=== PATIENT | male | born 1955 | race African-American/Black ===

== ENCOUNTER 2018-10-18 11:27 | Inpatient (IN) | payer MEDICARE, OTHER ==
[~2018-10-18] VITALS: Ht 180.3 cm; Wt 113.4 kg
[~2018-10-18 11:27] MED LIST: ASA5EC PO; DIGO125T82 PO; DILT240C3 PO; FURO-151 PO; HYDR-523 PO; IBUP-2028 PO; LEVE1000 PO; LEVO50TA8 PO
[2018-10-18] MEDS ORDERED: NITROGLYCERIN 0.4MG TABLET SL SL PRN (12:00)
[2018-10-18] MEDS ORDERED: DILTIAZEM HCL 5MG/ML 5ML VIAL IV ONE (12:00)
[2018-10-18 12:48] LABS: BASOPHILS % 0.9 % (0.0-2.0); EOSINOPHILS % 1.7 % (0.0-5.0); HEMATOCRIT. 42.2 % (42.0-52.0); HEMOGLOBIN. 13.7 g/dL (14.0-18.0); LYMPHOCYTES % 15.2 % (20.0-50.0); MEAN CORPUSCULAR HEMOGLOBIN 27.4 pg (28.0-32.0); MEAN CORPUSCULAR VOLUME 84.3 fL (80.0-94.0); MEAN PLATELET VOLUME 8.4 fl (7.4-10.4); MONOCYTES % 9.4 % (2.0-8.0); NEUTROPHILS % 72.8 % (40.0-76.0); PLATELET 250 x1000/uL (130-400)
[2018-10-18 12:56] LABS: INR 1.2; PROTHROMBIN TIME 12.2 sec (9.6-11.0)
[2018-10-18 13:17] LABS: CHLORIDE 101 mEq/L (98-107)
[2018-10-18] MEDS ORDERED: ONDANSETRON HCL 4MG/2ML INJ IV PRN (15:15)
[2018-10-18] MEDS ORDERED: DOCUSATE SODIUM 100MG CAPSULE PO PRN (15:15)
[2018-10-18] MEDS ORDERED: DIPHENHYDRAMINE 50MG/ML VIAL IV PRN (15:15)
[2018-10-18] MEDS ORDERED: IPRATROPIUM/ALBUTEROL 0.5-3(2.5)MG/3ML NEB INH PRN (15:15)
[2018-10-18] MEDS ORDERED: GUAIFENESIN 200MG/10ML SUGAR FREE UDC PO PRN (15:15)
[2018-10-18] MEDS ORDERED: ACETAMINOPHEN 650MG SUPP PR PRN (15:15)
[2018-10-18] MEDS ORDERED: MAGNESIUM/ALUMINUM HYDROXIDE/SIMETHICONE 30ML UDC PO PRN (15:15)
[2018-10-18] MEDS ORDERED: LORAZEPAM 0.5MG TABLET PO PRN (15:15)
[2018-10-18] MEDS ORDERED: CLONIDINE 0.1MG TABLET PO PRN (15:15)
[2018-10-18] MEDS ORDERED: NA PHOS,M-B/NA PHOS,DI-BA ENEMA 118ML PR PRN (15:15)
[2018-10-18] MEDS ORDERED: HYDROCODONE/ACETAMINOPHEN 5/325MG TABLET PO PRN (15:15)
[2018-10-18] MEDS ORDERED: DILTIAZEM HCL 125 MG in DEXT 5% WATER 100 ML IV PRN ×2 (15:15→17:00)
[2018-10-18] MEDS ORDERED: ACETAMINOPHEN 325MG TABLET PO PRN (15:15)
[2018-10-18 20:55] LABS: CLARITY URINE CLEAR (CLEAR); COLOR URINE YELLOW (YELLOW); KETONES URINE NEGATIVE (NEGATIVE); LEUKOCYTE ESTERASE URINE NEGATIVE (NEGATIVE); NITRITE URINE NEGATIVE (NEGATIVE); OCCULT BLOOD URINE NEGATIVE (NEGATIVE); PH URINE 6.5 (4.5-8.0); PROTEIN URINE NEGATIVE (NEGATIVE); SPECIFIC GRAVITY URINE 1.009 (1.005-1.030)
[2018-10-18] MEDS ORDERED: POTASSIUM CHLORIDE INJ 40 MEQ in DEXT 5% WATER 250 ML IV NR (21:00)
[2018-10-18 21:05] LABS: *AMPHETAMINES SCREEN URINE NEGATIVE (NEGATIVE); *BARBITURATES SCREEN URINE NEGATIVE (NEGATIVE)
[2018-10-18 21:06] LABS: *BENZODIAZEPINES SCREEN URINE NEGATIVE (NEGATIVE); *COCAINE SCREEN URINE NEGATIVE (NEGATIVE); CANNABINOID URINE SCREEN NEGATIVE (NEGATIVE); METHADONE URINE SCREEN NEGATIVE (NEGATIVE); OPIATES URINE SCREEN NEGATIVE (NEGATIVE); PHENCYCLIDINE URINE SCREEN NEGATIVE (NEGATIVE)
[2018-10-19] VITALS (18 sets, daily range): BP systolic 84–116; BP diastolic 47–92
[2018-10-19] MEDS ORDERED: ENOXAPARIN 120MG/0.8ML SYR SUBCUT SCH
[2018-10-19 07:30] LABS: EOSINOPHILS % 2.2 % (0.0-5.0); HEMATOCRIT. 43.5 % (42.0-52.0); HEMOGLOBIN. 14.1 g/dL (14.0-18.0); LYMPHOCYTES % 16.1 % (20.0-50.0); MEAN CORPUSCULAR HEMOGLOBIN 27.3 pg (28.0-32.0); MEAN CORPUSCULAR VOLUME 84.4 fL (80.0-94.0); MEAN PLATELET VOLUME 8.7 fl (7.4-10.4); MONOCYTES % 10.3 % (2.0-8.0); NEUTROPHILS % 70.4 % (40.0-76.0); PLATELET 242 x1000/uL (130-400); RED BLOOD CELL COUNT 5.15 mill/uL (4.7-6.1); RED CELL DISTRIBUTION WIDTH 16.8 % (11.6-14.6)
[2018-10-19] MEDS: ASPIRIN 81MG EC TABLET PO SCH (07:53)
[2018-10-19 08:34] LABS: CHLORIDE 98 mEq/L (98-107)
[2018-10-19 08:40] LABS: CREATINE KINASE MB FRACTION < 1.0 ng/mL (0.5-3.6)
[2018-10-19 08:45] LABS: LDL CHOLESTEROL 111 mg/dL (5-100)
[2018-10-19 08:46] LABS: CREATINE KINASE 128 IU/L (39-308); T4 FREE 1.15 ng/dL (0.76-1.46)
[2018-10-19 08:48] LABS: HDL CHOLESTEROL 46 mg/dL (40-59)
[2018-10-19] MEDS ORDERED: POTASSIUM CHLORIDE 20MEQ TABLET SR PO NR (11:15)
[2018-10-19] MEDS: ENOXAPARIN 100MG/ML SYR SUBCUT SCH (11:57)
[2018-10-19] MEDS: DILTIAZEM HCL 60MG TABLET PO SCH ×2 (11:58→17:26)
[2018-10-19] MEDS: LEVETIRACETAM 500MG TABLET PO SCH (17:26)
[2018-10-19] MEDS: AMIODARONE HCL 200 MG TABLET PO SCH (19:57)
[2018-10-19] MEDS ORDERED: DIGOXIN 500MCG/2ML AMP IV NR (23:13)
[2018-10-20] VITALS (36 sets, daily range): BP systolic 73–118; BP diastolic 48–82
[2018-10-20] MEDS: ENOXAPARIN 100MG/ML SYR SUBCUT SCH (00:26)
[2018-10-20] MEDS: AMIODARONE HCL 200 MG TABLET PO SCH ×3 (03:45→19:34)
[2018-10-20] MEDS: DILTIAZEM HCL 60MG TABLET PO SCH ×2 (06:00)
[2018-10-20] MEDS: LEVOTHYROXINE SODIUM 50MCG TABLET PO SCH (06:12)
[2018-10-20 06:25] LABS: BASOPHILS % 1.3 % (0.0-2.0); EOSINOPHILS % 1.7 % (0.0-5.0); HEMATOCRIT. 43.5 % (42.0-52.0); HEMOGLOBIN. 13.9 g/dL (14.0-18.0); MEAN CORPUSCULAR HEMOGLOBIN 27.1 pg (28.0-32.0); MEAN CORPUSCULAR VOLUME 84.6 fL (80.0-94.0); MEAN PLATELET VOLUME 9.1 fl (7.4-10.4); MONOCYTES % 10.7 % (2.0-8.0); NEUTROPHILS % 69.3 % (40.0-76.0); PLATELET 267 x1000/uL (130-400); RED BLOOD CELL COUNT 5.14 mill/uL (4.7-6.1); RED CELL DISTRIBUTION WIDTH 16.8 % (11.6-14.6)
[2018-10-20 06:50] LABS: CHLORIDE 101 mEq/L (98-107)
[2018-10-20] MEDS: ASPIRIN 81MG EC TABLET PO SCH (08:56)
[2018-10-20] MEDS: LEVETIRACETAM 500MG TABLET PO SCH ×2 (08:57→17:09)
[2018-10-20] MEDS ORDERED: DIGOXIN 500MCG/2ML AMP IV NR (09:45)
[2018-10-20] MEDS ORDERED: KCL 20MEQ/100ML PREMIX 100 ML IV NR (10:00)
[2018-10-20] MEDS ORDERED: AMIODARONE HCL 150 MG in DEXT 5% WATER 100 ML IV NR (10:00)
[2018-10-20 13:34] LABS: BG BASE EXCESS 6.1 mmol/L (-2.0-2.0); BG CARBOXYHEMOGLOBIN 1.4 % (0.5-1.5); BG DEOXYHEMOGLOBIN 5.7 % (0.0-5.0); BG FRACTION INSPIRED OXYGEN 21; BG HCO3 ACT 30.8 mmol/L (22.0-26.0); BG METHEMOGLOBIN 0.2 % (0.0-1.5); BG OXYGEN SATURATION 94.2 % (92.0-98.5); BG OXYHEMOGLOBIN 92.7 % (94.0-97.0); BG PCO2 44.3 mmHg (35.0-45.0); BG PO2 68.7 mmHg (75.0-100.0); BG SAMPLE SITE RIGHT BRACHIAL; BG TOTAL HEMOGLOBIN 14.7 g/dL (12.0-18.0); BG VENT MODE ROOM AIR
[2018-10-20] MEDS: SODIUM CHLORIDE 0.45% 1,000 ML IV SCH ×2 (14:00→14:21)
[2018-10-20] MEDS ORDERED: SODIUM CHLORIDE 0.9% 1,000 ML IV SCH (15:45)
[2018-10-20] MEDS ORDERED: POTASSIUM CHLORIDE 20MEQ TABLET SR PO NR (16:44)
[2018-10-20] MEDS ORDERED: ENOXAPARIN 100MG/ML SYR SUBCUT NR (16:45)
[2018-10-20] MEDS: ATORVASTATIN CALCIUM 20MG TABLET PO SCH (21:32)
[2018-10-21] VITALS (12 sets, daily range): BP systolic 97–132; BP diastolic 53–78
[2018-10-21] MEDS: AMIODARONE HCL 200 MG TABLET PO SCH ×3 (03:16→18:14)
[2018-10-21] MEDS: LEVOTHYROXINE SODIUM 50MCG TABLET PO SCH (06:50)
[2018-10-21 07:21] LABS: BASOPHILS % 1.3 % (0.0-2.0); EOSINOPHILS % 2.6 % (0.0-5.0); HEMATOCRIT. 42.3 % (42.0-52.0); HEMOGLOBIN. 13.9 g/dL (14.0-18.0); LYMPHOCYTES % 18.7 % (20.0-50.0); MEAN CORPUSCULAR HEMOGLOBIN 27.7 pg (28.0-32.0); MEAN CORPUSCULAR VOLUME 84.5 fL (80.0-94.0); MONOCYTES % 10.5 % (2.0-8.0); NEUTROPHILS % 66.9 % (40.0-76.0); PLATELET 247 x1000/uL (130-400); RED BLOOD CELL COUNT 5.01 mill/uL (4.7-6.1); RED CELL DISTRIBUTION WIDTH 16.6 % (11.6-14.6)
[2018-10-21 07:40] LABS: CHLORIDE 108 mEq/L (98-107)
[2018-10-21] MEDS: ASPIRIN 81MG EC TABLET PO SCH (09:00)
[2018-10-21] MEDS: LEVETIRACETAM 500MG TABLET PO SCH ×2 (09:00→18:14)
[2018-10-21] MEDS ORDERED: NITROGLYCERIN 50MCG/ML 10ML VIAL (CATH LAB) IV ONE (09:29)
[2018-10-21] MEDS ORDERED: NICARDIPINE 100MCG/ML 10ML VIAL (CATH LAB) IV ONE (09:29)
[2018-10-21] MEDS ORDERED: HEPARIN SODIUM 1,000 UNIT/1ML VIAL IV ONE (09:29)
[2018-10-21] MEDS ORDERED: FENTANYL CITRATE/PF 50MCG/ML 2ML VIAL ONE (13:21)
[2018-10-21] MEDS ORDERED: ASPIRIN/SOD BICARB/CITRIC ACID 324MG TAB EFF ONE (13:21)
[2018-10-21] MEDS ORDERED: MIDAZOLAM HCL 2 MG/2 ML VIAL ONE (13:21)
[2018-10-21] MEDS ORDERED: IODIXANOL 320MG/ML 100 ML BOTTLE IV ONE (13:22)
[2018-10-21] MEDS ORDERED: LIDOCAINE HCL 1% 20ML VIAL (Pyxis) INJ ONE (13:22)
[2018-10-21] MEDS ORDERED: SODIUM CHLORIDE 0.45% 1,000 ML IV ONE (14:30)
[2018-10-21] MEDS ORDERED: ACETAMINOPHEN 325MG TABLET PO PRN (14:30)
[2018-10-21] MEDS ORDERED: ATROPINE SULFATE 1MG/10ML SYR IV PRN (14:30)
[2018-10-21] MEDS ORDERED: ONDANSETRON HCL 4MG/2ML INJ IV PRN (14:30)
[2018-10-21] MEDS ORDERED: MORPHINE SULFATE 2 MG/ML CPJ (NOT FOR IM USE) IV PRN (14:30)
[2018-10-21] MEDS: APIXABAN 5 MG TABLET PO SCH (21:05)
[2018-10-21] MEDS: ATORVASTATIN CALCIUM 20MG TABLET PO SCH (21:05)
[2018-10-22] VITALS (8 sets, daily range): BP systolic 94–121; BP diastolic 57–77
[2018-10-22] MEDS: AMIODARONE HCL 200 MG TABLET PO SCH ×2 (03:53→10:45)
[2018-10-22] MEDS: LEVOTHYROXINE SODIUM 50MCG TABLET PO SCH (05:59)
[2018-10-22 06:15] LABS: BASOPHILS % 1.1 % (0.0-2.0); EOSINOPHILS % 2.6 % (0.0-5.0); HEMATOCRIT. 42.4 % (42.0-52.0); HEMOGLOBIN. 13.9 g/dL (14.0-18.0); LYMPHOCYTES % 17.1 % (20.0-50.0); MEAN CORPUSCULAR VOLUME 85.5 fL (80.0-94.0); MEAN PLATELET VOLUME 8.7 fl (7.4-10.4); MONOCYTES % 10.7 % (2.0-8.0); NEUTROPHILS % 68.5 % (40.0-76.0); PLATELET 235 x1000/uL (130-400); RED BLOOD CELL COUNT 4.96 mill/uL (4.7-6.1); RED CELL DISTRIBUTION WIDTH 16.4 % (11.6-14.6)
[2018-10-22 06:21] LABS: CHLORIDE 108 mEq/L (98-107)
[2018-10-22] MEDS: ASPIRIN 81MG EC TABLET PO SCH (08:18)
[2018-10-22] MEDS: LEVETIRACETAM 500MG TABLET PO SCH (08:18)
[2018-10-22] MEDS: APIXABAN 5 MG TABLET PO SCH (08:18)
[2018-10-22 10:11] LABS: *CREATININE RANDOM URINE 71.5 mg/dL (Not Estab.); MICROALBUMIN RANDOM URINE 3.2 ug/mL (Not Estab.)
== END 2018-10-22 13:56 | disposition home or self-care (01) | DRG 286 ==
LOC: ER 12:21 → 3WST 13:53 → EDBEDREQSVC 16:54 → ENRESERV 21:05 → 3WST 10-20 09:58
PROVIDERS: ADMIT Internal Medicine; ATTEND Internal Medicine
PROC: B2111ZZ Fluoroscopy of Multiple Coronary Arteries using Low Osmolar Contrast (ICD-10-PCS; principal; 2018-10-21)
PROC: 4A033BC Measurement of Arterial Pressure, Coronary, Percutaneous Approach (ICD-10-PCS; 2018-10-21)
DX: I48.1 Persistent atrial fibrillation (principal); I50.33 Acute on chronic diastolic (congestive) heart failure; D68.59 Other primary thrombophilia; N17.9 Acute kidney failure, unspecified; J98.11 Atelectasis; I42.9 Cardiomyopathy, unspecified; E87.6 Hypokalemia; G40.909 Epilepsy, unspecified, not intractable, without status epilepticus; G89.29 Other chronic pain; M54.9 Dorsalgia, unspecified; I25.10 Atherosclerotic heart disease of native coronary artery without angina pectoris; J44.9 Chronic obstructive pulmonary disease, unspecified; R73.9 Hyperglycemia, unspecified; I49.9 Cardiac arrhythmia, unspecified; K42.9 Umbilical hernia without obstruction or gangrene; I11.0 Hypertensive heart disease with heart failure; I95.9 Hypotension, unspecified; E03.9 Hypothyroidism, unspecified; E80.6 Other disorders of bilirubin metabolism; Z96.643 Presence of artificial hip joint, bilateral; Z87.891 Personal history of nicotine dependence; Z79.899 Other long term (current) drug therapy; Z79.01 Long term (current) use of anticoagulants; Z98.84 Bariatric surgery status; I25.2 Old myocardial infarction; Z88.8 Allergy status to other drugs, medicaments and biological substances; Z79.82 Long term (current) use of aspirin; Z90.89 Acquired absence of other organs
CPT/HCPCS: 36415; 36600; 71045; 76770; 80048; 80061; 80305; 82043; 82248; 82375; 82550; 82553; 82570; 82805; 83036; 83735; 83880; 83935; 84100; 84300; 84439; 84443; 84484; 85379; 93005; 93306; 93454; 93970; 96374; 99291; C1769; C1887; C1893; J0282; J1160; J1644; J1650; J2250; J3010; J3480; J3490; J7050; J7060; Q9967

== ENCOUNTER 2021-11-28 23:07 | Inpatient (IN) | payer MEDICARE, MEDICAID ==
[~2021-11-28] VITALS: Ht 177.8 cm; Wt 123.8 kg
[~2021-11-28 23:07] MED LIST changes: -ASA5EC PO; +ASPI-867 PO; +DIGO125T PO; -DIGO125T82 PO; -DILT240C3 PO; +DILT240C94 PO
[2021-11-29 00:06] LABS: BASOPHILS % 0.9 % (0.0-2.0); EOSINOPHILS % 4.5 % (0.0-5.0); HEMATOCRIT. 37.4 % (42.0-52.0); HEMOGLOBIN. 12.3 g/dL (14.0-18.0); MEAN CORPUSCULAR HEMOGLOBIN 28.9 pg (28.0-32.0); MEAN CORPUSCULAR VOLUME 87.6 fL (80.0-94.0); MEAN PLATELET VOLUME 8.8 fl (7.4-10.4); MONOCYTES % 8.1 % (2.0-8.0); NEUTROPHILS % 61.5 % (40.0-76.0); PLATELET 189 x1000/uL (130-400); RED BLOOD CELL COUNT 4.27 mill/uL (4.7-6.1); RED CELL DISTRIBUTION WIDTH 14.2 % (11.6-14.6)
[2021-11-29 00:11] LABS: CHLORIDE 107 mEq/L (98-107)
[2021-11-29] MEDS ORDERED: MORPHINE SULFATE 4 MG/ML CPJ (NOT FOR IM USE) IV ONE (00:30)
[2021-11-29] MEDS ORDERED: ASPIRIN 325MG TABLET PO ONE (00:30)
[2021-11-29 09:40] VITALS: BP 120/92
[2021-11-29] MEDS ORDERED: CLOP75TA33 MT (10:34)
[2021-11-29] MEDS ORDERED: METO-539 MT (10:34)
[2021-11-29] MEDS ORDERED: POTA-185 MT (10:34)
[2021-11-29] MEDS ORDERED: APIX5TAB MT (10:34)
[2021-11-29] MEDS ORDERED: HYDR-4009 MT (10:34)
[2021-11-29] MEDS ORDERED: FERR-71 PO (10:34)
[2021-11-29] MEDS ORDERED: PNEUMOCOCCAL VACCINE IM ONE (11:15)
[2021-11-29 12:00] VITALS: BP 128/84
[2021-11-29 12:18] VITALS: BP 120/92
[2021-11-29] MEDS ORDERED: FUROSEMIDE 40MG TABLET PO SCH (12:45)
[2021-11-29] MEDS ORDERED: ACETAMINOPHEN 325MG TABLET PO PRN (12:45)
[2021-11-29] MEDS: LEVETIRACETAM 500MG/5ML CUP PO SCH ×2 (13:21→21:22)
[2021-11-29] MEDS: FERROUS SULFATE 300MG/5ML UDC PO SCH (13:22)
[2021-11-29] MEDS: METOPROLOL TARTRATE 50MG TABLET PO SCH (13:22)
[2021-11-29] MEDS: CLOPIDOGREL 75MG TABLET PO SCH (13:22)
[2021-11-29] MEDS: APIXABAN 5 MG TABLET PO SCH ×2 (13:22→18:21)
[2021-11-29] MEDS: HYDROCODONE/APAP 7.5/325MG 1 TAB TABLET PO PRN (13:38)
[2021-11-29] MEDS ORDERED: NALOXONE HCL 0.4MG/ML VIAL IV PRN (13:45)
[2021-11-29 14:00] VITALS: BP 123/91
[2021-11-29 16:00] VITALS: BP 123/91
[2021-11-29] MEDS ORDERED: FURO40TA5 MT (17:03)
[2021-11-29] MEDS: NITROGLYCERIN OINT 1GM/INCH UDPKT TD SCH ×2 (18:21→21:24)
[2021-11-29 20:00] VITALS: BP 95/63
[2021-11-29] MEDS: FUROSEMIDE 40MG/4ML VIAL IVP SCH (21:22)
[2021-11-30 00:49] VITALS: BP 115/64
[2021-11-30 05:03] VITALS: BP 110/69
[2021-11-30] MEDS: NITROGLYCERIN OINT 1GM/INCH UDPKT TD SCH ×3 (05:30→21:15)
[2021-11-30] MEDS: HYDROCODONE/APAP 7.5/325MG 1 TAB TABLET PO PRN ×2 (05:35→14:10)
[2021-11-30 07:06] LABS: CHLORIDE 106 mEq/L (98-107)
[2021-11-30 07:07] LABS: BASOPHILS % 0.9 % (0.0-2.0); EOSINOPHILS % 3.9 % (0.0-5.0); HEMATOCRIT. 38.3 % (42.0-52.0); HEMOGLOBIN. 12.7 g/dL (14.0-18.0); LYMPHOCYTES % 17.2 % (20.0-50.0); MEAN CORPUSCULAR VOLUME 87.4 fL (80.0-94.0); MEAN PLATELET VOLUME 8.6 fl (7.4-10.4); MONOCYTES % 9.8 % (2.0-8.0); NEUTROPHILS % 68.2 % (40.0-76.0); PLATELET 171 x1000/uL (130-400); RED BLOOD CELL COUNT 4.38 mill/uL (4.7-6.1); RED CELL DISTRIBUTION WIDTH 14.5 % (11.6-14.6)
[2021-11-30 08:00] VITALS: BP 107/80
[2021-11-30] MEDS: METOPROLOL TARTRATE 50MG TABLET PO SCH (09:00)
[2021-11-30] MEDS: FUROSEMIDE 40MG/4ML VIAL IVP SCH ×2 (09:00→09:59)
[2021-11-30] MEDS: APIXABAN 5 MG TABLET PO SCH ×2 (09:31→17:35)
[2021-11-30] MEDS: LEVETIRACETAM 500MG/5ML CUP PO SCH ×2 (09:31→21:15)
[2021-11-30] MEDS: FERROUS SULFATE 300MG/5ML UDC PO SCH (09:31)
[2021-11-30] MEDS: CLOPIDOGREL 75MG TABLET PO SCH (09:31)
[2021-11-30] MEDS: POTASSIUM CHLORIDE 20MEQ TABLET SR PO SCH (09:31)
[2021-11-30 12:00] VITALS: BP 96/61
[2021-11-30 16:00] VITALS: BP 99/64
[2021-11-30] MEDS ORDERED: FUROSEMIDE 40MG/4ML VIAL IVP NR (18:00)
[2021-11-30 20:00] VITALS: BP 104/74
[2021-12-01] VITALS: BP 100/70
[2021-12-01 04:00] VITALS: BP 99/68
[2021-12-01] MEDS: NITROGLYCERIN OINT 1GM/INCH UDPKT TD SCH (06:00)
[2021-12-01 08:00] VITALS: BP 97/70
[2021-12-01 08:03] LABS: BASOPHILS % 0.6 % (0.0-2.0); HEMATOCRIT. 40.2 % (42.0-52.0); HEMOGLOBIN. 13.3 g/dL (14.0-18.0); MEAN CORPUSCULAR HEMOGLOBIN 28.9 pg (28.0-32.0); MEAN CORPUSCULAR VOLUME 87.2 fL (80.0-94.0); MEAN PLATELET VOLUME 8.8 fl (7.4-10.4); MONOCYTES % 9.5 % (2.0-8.0); NEUTROPHILS % 63.9 % (40.0-76.0); PLATELET 193 x1000/uL (130-400); RED BLOOD CELL COUNT 4.61 mill/uL (4.7-6.1); RED CELL DISTRIBUTION WIDTH 14.6 % (11.6-14.6)
[2021-12-01 08:13] LABS: CHLORIDE 105 mEq/L (98-107)
[2021-12-01] MEDS: CLOPIDOGREL 75MG TABLET PO SCH (08:38)
[2021-12-01] MEDS: POTASSIUM CHLORIDE 20MEQ TABLET SR PO SCH (08:38)
[2021-12-01] MEDS: LEVETIRACETAM 500MG/5ML CUP PO SCH (08:38)
[2021-12-01] MEDS: APIXABAN 5 MG TABLET PO SCH ×2 (08:38→17:20)
[2021-12-01] MEDS: FERROUS SULFATE 300MG/5ML UDC PO SCH (08:39)
[2021-12-01] MEDS: METOPROLOL TARTRATE 50MG TABLET PO SCH (08:43)
[2021-12-01] MEDS ORDERED: FUROSEMIDE 100MG/10ML VIAL IVP SCH (09:00)
[2021-12-01] MEDS ORDERED: FUROSEMIDE 40MG TABLET PO SCH ×2 (10:00→20:00)
[2021-12-01] MEDS: HYDROCODONE/APAP 7.5/325MG 1 TAB TABLET PO PRN (10:36)
[2021-12-01 12:00] VITALS: BP 109/82
[2021-12-01 16:00] VITALS: BP 109/73
[2021-12-01 18:02] VITALS: BP 109/73
== END 2021-12-01 19:20 | disposition home or self-care (01) | DRG 291 ==
LOC: ER 23:07 → 7WST 11-29 02:11 → ENRESERV 11-29 07:14
PROVIDERS: ADMIT Internal Medicine; ATTEND Internal Medicine
DX: I11.0 Hypertensive heart disease with heart failure (principal); I50.43 Acute on chronic combined systolic (congestive) and diastolic (congestive) heart failure; I48.20 Chronic atrial fibrillation, unspecified; G47.33 Obstructive sleep apnea (adult) (pediatric); G40.909 Epilepsy, unspecified, not intractable, without status epilepticus; I25.10 Atherosclerotic heart disease of native coronary artery without angina pectoris; E03.9 Hypothyroidism, unspecified; Z79.01 Long term (current) use of anticoagulants; Z79.02 Long term (current) use of antithrombotics/antiplatelets; Z79.899 Other long term (current) drug therapy; Z91.09 Other allergy status, other than to drugs and biological substances; Z87.891 Personal history of nicotine dependence
CPT/HCPCS: 36415; 71045; 80048; 80053; 83735; 83880; 84484; 85025; 90732; 93005; 93306; 93970; 99285; J1940; J2270